=== PATIENT | male | born 1970 | race Caucasian/White ===

== ENCOUNTER 2020-01-10 03:38 | Emergency (ER) | payer SELFPAY ==
[~2020-01-10] VITALS: Ht 165.1 cm; Wt 89.0 kg
[2020-01-10] MEDS ORDERED: LIDOCAINE HCL/EPINEPHRINE 1%-EPI 1:100,000 20 ML VIAL INFIL SCH (06:30)
[2020-01-10] MEDS ORDERED: LIDOCAINE 1%/EPI 1:100,000 10 ML VIAL IJ ONE (06:30)
[2020-01-10] MEDS ORDERED: TETANUS, DIPHTHERIA, PERTUSSIS VAC/PF 0.5ML (>7YR OLD) IM ONE (06:30)
[2020-01-10] MEDS ORDERED: SULFAMETHOXAZOLE/TRIMETHOPRIM 800/160MG TABLET PO ONE (06:30)
[2020-01-10] MEDS ORDERED: IBUPROFEN 600MG TABLET PO ONE (06:30)
[2020-01-10] MEDS ORDERED: CEPHALEXIN 250MG CAPSULE PO ONE (06:30)
[2020-01-10 07:14] VITALS: BP 135/85
== END 2020-01-10 07:15 | disposition home or self-care (01) ==
LOC: ER 03:38
DX: L02.811 Cutaneous abscess of head [any part, except face] (principal); E11.9 Type 2 diabetes mellitus without complications; I10 Essential (primary) hypertension
CPT/HCPCS: 10060; 87070; 87077; 87205; 99284; J3490